=== PATIENT | female | born 1955 | race Caucasian/White ===

== ENCOUNTER 2020-07-04 14:01 | Emergency (ER) | payer MEDICARE, OTHER, SELFPAY ==
--- NOTE | ~2020-07-04 | XR_ITS ---
EXAMINATION: XR ABDOMEN KUB CLINICAL INDICATION: Gastrostomy feeding tube placement. COMPARISON: Esophagram dated 02/03/2016. TECHNIQUE: AP view of the abdomen. FINDINGS: The bowel gas pattern is normal with no evidence of ileus or obstruction. Administered contrast through the gastric tube positioned in the stomach. No unusual soft tissue calcifications are noted. The bones are unremarkable. XR/XR abdomen 1V IMPRESSION: Normal bowel gas pattern. Administered contrast through the gastric tube positioned in the stomach.
[2020-07-04 14:05] VITALS: BP 119/55; PULSE 87; RESP 18; TEMP 36.8; O2SAT 98; BMI 27.6
[2020-07-04 16:08] LABS: MANUAL DIFF FLAG NO
[2020-07-04 16:16] LABS: Basophils Percent Auto 0.7 % (0-2); Eosinophils Percent Auto 0.7 % (0-4); Hematocrit 31.3 % (37-47); Hemoglobin 10.8 g/dl (12.0-16.0); Imm Gran Abs Auto 0.01 X10*3/uL (0.00-0.03); Imm Gran Pct Auto 0.2 % (0.0-0.4); Lymphocytes Absolute Auto 1.3 X10*3/uL (1.2-4.9); Lymphocytes Percent Auto 30.3 % (20-40); Mean Corpuscular HGB Conc 34.5 g/dl (31.0-35.0); Mean Corpuscular Hemoglobin 30.9 pg (27.0-33.0); Mean Corpuscular Volume 89.4 fL (80-98); Mean Platelet Volume 9.5 fL (9.4-12.3); Monocytes Absolute Auto 0.4 X10*3/uL (0.1-1.2); Monocytes Percent Auto 9.4 % (2-11); Neutrophils Absolute Auto 2.6 X10*3/uL (2.0-8.3); Neutrophils Percent Auto 58.7 % (45-73); Platelet Count 181 X10*3/uL (160-400); Red Cell Distribution Width 12.2 % (11.0-16.0); White Blood Count 4.4 X10*3/uL (4.8-10.8)
[2020-07-04 16:30] LABS: Anion Gap 13 (12-20); Blood Urea Nitrogen 14 mg/dL (9-16); Calcium 8.9 mg/dL (8.4-10.2); Carbon Dioxide 30 mmol/L (22-29); Chloride 99 mmol/L (96-108); Creatinine Clr Calc Pharmacy 71.1; Estimated Glomerular Filt Rate > 60; Glucose Random 70 mg/dL (60-115); Potassium 4.3 mmol/L (3.3-5.1); Sodium 138 mmol/L (135-145)
--- NOTE | 2020-07-04 17:43 | ED_ITS ---
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 She denies any abdominal pain. She does report that she has had about 10 lb weight loss over the past month but she contributes this to the fact that she has decreased her pureed leading to wait last. There is no abdominal pain, nausea vomiting. No diarrhea. No fever. No chest pain shortness of breath. Associated symptoms: denies other symptoms Related Data Allergies Allergy/AdvReac Type Severity Reaction Status Date / Time morphine [MORPHINE] Allergy Mild HALLUCINATI Unverified 01/25/20 15:47 ONS Review of Systems Review of Systems: Constitutional: No Weight loss, No Fever, No Chills, No Night Sweats, No Fatigue, No Malaise ENT/Mouth: No Hearing loss, No Ear Pain, No Nasal Congestion, No Sinus Pain, No Hoarseness, No sore throat, No Rhinorrhea, No Swallowing Difficulty Eyes: No Eye Pain, No Swelling, No Redness, No Foreign Body, No Discharge, No Vision Changes Cardiovascular: No Chest Pain, No SOB, No Dyspnea on Exertion, No Orthopnea, No Edema, No Palpitations Respiratory: No Cough, No Sputum, No Wheezing, No Dyspnea Gastrointestinal: No Nausea, No Vomiting, No Diarrhea, No Constipation, No abdominal Pain, No Hematochezia, No Melena Genitourinary: No Dysuria, No Urinary Frequency, No Hematuria, No Urinary Incontinence, No Urgency, No Flank Pain, No Urinary Flow Changes, No Hesitancy Musculoskeletal: No joint pain, No Myalgias, No Joint Swelling Skin: No Skin Lesions, No rash Neuro: No Weakness, No Numbness, No Paresthesias, No Loss of Consciousness, No Dizziness, No Headache Psych: No Social Issues Heme/Lymph: No Bruising, No Bleeding,No Lymphadenopathy Endocrine: No Polyuria, No Polydipsia, No Temperature Intolerance Yes all other systems are reviewed and are negative [facility] Past Medical History Medical History (Updated 07/04/20 @ 18:28 by Jose R Brizuela NP) Arthritis Colon cancer Paraganglioma Thyroid ca Social History Social History Alcohol intake: never Smoking Status: Never smoker Use of substances other than those prescribed or required for medical reasons: No Advance Directives: No Advance Directives Information Provided: Yes Physical Exam Vital Signs: Vital Signs: Last Vital Signs Temp 98.2 F 07/04/20 14:05 Pulse 87 07/04/20 14:05 Resp 18 07/04/20 14:05 BP 119/55 L 07/04/20 14:05 Pulse Ox 98 07/04/20 14:05 Body Mass Index 27.6 Reviewed Const: General: cooperative and healthy appearing; No acute distress or intoxicated appearing Nutritional Appearance: average body habitus Orientation/consciousness: patient oriented x3 HENMT: Head: Yes normal to inspection Ears: hearing grossly normal bilaterally Eyes: General: appearance normal, both eyes and all related structures Visual Caro: normal visual caro by confrontation Neck: Neck: Yes normal visual inspection, No positive Brudzinski's sign, No positive Kernig's sign and No tender Thyroid: Thyroid normal Chest: Chest palpation & inspection: normal inspection of the chest Resp: Effort & Inspection: normal respiratory effort Auscultation: clear to auscultation bilaterally Cardio: Jugular venous distension: no JVD Rhythm: regular rhythm Heart sounds: S1 normal heart sound present and S2 normal heart sound present GI: Inspection: Yes normal to inspection Percussion: Yes normal to percussion Auscultation: normal bowel sounds Abdomen image: 1. Gastrostomy tube in place with dressing needed. Abdomen soft, without erythema or induration. No discharge. The tube does appear to be significantly age has cracks and brown appearing. : General: Yes no CVA tenderness Back/Spine/Pelvis: Back: no CVA tenderness Skin: General skin exam: no rashes or lesions noted Neuro: General: patient oriented x3 Extrem: General: Yes normal to inspection Procedures Feeding Tube Replacement Type of Tube: gastrostomy Insertion Site Prior to Procedure: clean Tube Used for Reinsertion: other (EDUAR 20 Australian gastrostomy tube feeding to) Australian Tube Size (F): 20 Balloon size (mL): 5 Verification of Placement: auscultation, KUB and gastrografin injection Tube Secured by: tape/dressing Patient Tolerated Procedure: well and no complications Additional Comments: Tolerated procedure very well. Medical Decision Making Medical Records Medical records reviewed: Yes I reviewed the patient's medical records. Medical records narrative: 03/16/2019 visit as well as 12/28/2019 visit for tube replacement. Lab Data Result diagrams: 07/04/20 16:01 07/04/20 16:01 Labs: Lab Results 07/04/20 07/04/20 07/04/20 Range/Units 16:01 16:01 16:01 WBC 4.4 L (4.8-10.8) X10*3/uL RBC 3.50 L (4.20-5.50) X10*6/uL Hgb 10.8 L (12.0-16.0) g/dl Hct 31.3 L (37-47) % MCV 89.4 (80-98) fL MCH 30.9 (27.0-33.0) pg MCHC 34.5 (31.0-35.0) g/dl RDW 12.2 (11.0-16.0) % Plt Count 181 (160-400) X10*3/uL MPV 9.5 (9.4-12.3) fL Immature Gran % (Auto) 0.2 (0.0-0.4) % Neut % (Auto) 58.7 (45-73) % Lymph % (Auto) 30.3 (20-40) % Snyder % (Auto) 9.4 (2-11) % Eos % (Auto) 0.7 (0-4) % Baso % (Auto) 0.7 (0-2) % Lymph # (Auto) 1.3 (1.2-4.9) X10*3/uL Snyder # (Auto) 0.4 (0.1-1.2) X10*3/uL Eos # (Auto) 0.0 (0.0-0.4) X10*3/uL Baso # (Auto) 0.0 (0.0-0.2) X10*3/uL Abs Immat Gran (auto) 0.01 (0.00-0.03) X10*3/uL Absolute Neuts (auto) 2.6 (2.0-8.3) X10*3/uL Absolute Nucleated RBC 0.000 (0.0-0.012) X10*3/uL Nucleated RBC % (auto) 0.0 (0.0-0.2) /100WBC Hold Blue Top SEE NOTE Sodium 138 (135-145) mmol/L Potassium 4.3 (3.3-5.1) mmol/L Chloride 99 (96-108) mmol/L Carbon Dioxide 30 H (22-29) mmol/L Anion Gap 13 (12-20) BUN 14 (9-16) mg/dL Creatinine 0.79 (0.5-1.4) mg/dL Estim Creat Clear Calc 71.1 Estimated GFR > 60 Random Glucose 70 (60-115) mg/dL Calcium 8.9 (8.4-10.2) mg/dL Imaging Data Abdomen one view: Radiologist's impression: [address] [id number] ReportSigned Patient: Remedios Mendoza LMR#: [id number]: [id number]:[id number]/Sex: 64 / FADM Date: 07/04/20Loc: EDAttending Dr: Ordering Physician: Jose R Brizuela NP Date of Service: 07/04/20 Procedure(s): XR abdomen 1V Accession Number(s): [id number] cc: Jose R Brizuela BUTTONHOLE MAKER HAND~ EXAMINATION: XR ABDOMEN KUB CLINICAL INDICATION: Gastrostomy feeding tube placement. COMPARISON: Esophagram dated 02/03/2016. TECHNIQUE: AP view of the abdomen. FINDINGS: The bowel gas pattern is normal with no evidence of ileus or obstruction. Administered contrast through the gastric tube positioned in the stomach. No unusual soft tissue calcifications are noted. The bones are unremarkable. XR/XR abdomen 1V IMPRESSION: Normal bowel gas pattern. Administered contrast through the gastric tube positioned in the stomach. Dictated By:Donya Avery MDSigned By:<Electronically signed by Donya Avery MD in [place]>07/04/201821 DD/ [id number]/TT: Tractor Driver: Discharge Plan Discharge Clinical Impression: Gastric tube granulation tissue Patient Disposition: Home, Self-Care Instructions: How to Use and Care for Your PEG Tube (ED) Additional Instructions: Your G-tube was replaced Continue tube feeding as instructed Follow-up with your GI doctor as plan Return if any concerns with systems Thank you Referrals: Varun Guaman [Physician] - 1 week
== END 2020-07-04 18:43 | disposition home or self-care (01) ==
PROVIDERS: Emergency Provider Internal Medicine; PCP Internal Medicine
DX: L92.9 Granulomatous disorder of the skin and subcutaneous tissue, unspecified (principal); Z43.1 Encounter for attention to gastrostomy; Z85.038 Personal history of other malignant neoplasm of large intestine; Z85.850 Personal history of malignant neoplasm of thyroid
CPT/HCPCS: 36415; 43762; 74018; 80048; 85025; 99284

== ENCOUNTER 2021-03-26 16:29 | Emergency (ER) | payer MEDICARE, OTHER, SELFPAY ==
--- NOTE | ~2021-03-26 | XR_ITS ---
EXAMINATION: XR ABDOMEN KUB CLINICAL INDICATION: Status post G-tube COMPARISON: None TECHNIQUE: AP view of the abdomen was performed after the administration of Gastrografin through the patient's G-tube. FINDINGS: The G-tube is in the stomach. Contrast is present in the stomach as well as the proximal small bowel. XR/XR KUB IMPRESSION: The gastrostomy tube is in the stomach.
[2021-03-26 16:36] VITALS: BP 138/76; PULSE 91; RESP 18; TEMP 36.7; O2SAT 100; BMI 23.5
--- NOTE | 2021-03-26 17:31 | ED_ITS ---
HPI - General Adult General Chief complaint: General Medical Stated complaint: check feeding tube..abd pain Time Seen by Provider: 03/26/21 17:31 Source: patient Mode of arrival: ambulatory Limitations: no limitations History of Present Illness HPI narrative: [age] year old female came in for evaluation of gastrostomy tube malfunction. Patient with history of ENT tumor, patient been having gastrostomy tube since 2019, to be used for most of her feeding patient still can do some puree diet by the mouth, patient stated that her feeding tube is acting slow, with some discomfort when she use for feeding. No fever, no chills, no nausea, no vomiting. Related Data Allergies Allergy/AdvReac Type Severity Reaction Status Date / Time morphine [MORPHINE] Allergy Mild HALLUCINATI Unverified 01/25/20 15:47 ONS Review of Systems Review of Systems: All other systems are reviewed and are negative Constitutional: Reports as per HPI and Reports no additional constitutional complaints Eyes: Reports as per HPI and Reports no additional eye complaints Reports system reviewed and no additional complaints, except as documented Cardiovascular: Reports as per HPI and Reports no additional cardiovascular complaints Respiratory: Reports as per HPI and Reports no additional respiratory complaints Gastrointestinal: Reports as per HPI and Reports no additional gastrointestinal complaints Genitourinary: Reports no additional female genitourinary complaints Musculoskeletal: Reports no additional musculoskeletal complaints Skin/Breast: Reports system reviewed and no additional complaints, except as docu Psychiatric: Reports no additional psychiatric complaints Endocrine: Reports no additional endocrine complaints Hematologic/Lymphatic: Reports no additional hematologic/lymphatic complaints Allergic/Immunologic: Reports no additional allergic/immunologic complaints Reports system reviewed and no additional complaints, except as documented and Reports Abnormal speech present [facility] Past Medical History Medical History Arthritis Colon cancer Paraganglioma Thyroid ca Social History Social History Alcohol intake: never Advance Directives: No Advance Directives Information Provided: Yes Physical Exam Vital Signs: Vital Signs: Last Vital Signs Temp 97.9 F 03/26/21 17:35 Pulse 82 03/26/21 18:57 Resp 16 03/26/21 18:57 BP 134/71 03/26/21 18:57 Pulse Ox 97 03/26/21 18:57 Body Mass Index 23.5 Vital signs have been reviewed as appeared to be correct. Blood pressure normal. Heart rate normal. Respiration rate normal. Temperature normal. Oxygen saturation normal. Appearance: Alert. Oriented X3. No acute distress. Head: Normal external exam. Normocephalic. Atraumatic. No Varma signs noted. No raccoon eyes noted Eyes: PERRLA. EOMI. Conjunctiva and sclera normal. Eyelids normal. ENT: TM's Normal. Pharynx normal. Uvula midline. Moist mucous membranes. No trismus noted. No drooling noted. No muffled voice noted. Neck: Normal inspection. Neck supple. FROM. No adenopathy. Thyroid Normal. No meningeal signs. No neck mass noted. CVS: Normal heart rate and rhythm. Heart sound normal. No murmurs noted. Pulses normal throughout. Respiratory: No respiratory distress. Painless inspiration. Breath sounds normal. No wheezes/rales/rhonchi noted. Chest nontender. No accessory muscle usage noted or decreased air movement noted. Abdomen: Soft and nontender. Bowel sounds normal in all 4 quadrants. No distention noted. No organomegaly noted. No visible injury noted. Gastric tube is in place, no cellulitis around the tube. Back: No CVA tenderness. Full range of motion noted. Skin: Skin warm and dry. Normal skin color. Normal skin turgor. No rashes/lesions/lacerations noted. Extremities: No lower extremity edema. Extremities exhibit normal range of motion. Extremities nontender. Neuro: Oriented X 3. Cranial nerve exam: II-XII are grossly intact No motor deficit. No sensory deficit. Reflexes normal. Course Course Course Narrative: Assessment and plan. 65-year-old female status post G-tube to be replaced in the emergency department. Post insertion x-ray with Gastrografin appear to be in place. Repeat abdominal exam showed no tenderness or rebound or guarding. Procedures Feeding Tube Replacement Type of Tube: gastrostomy Insertion Site Prior to Procedure: clean Swedish Tube Size (F): 22 Balloon size (mL): 10 Verification of Placement: KUB Tube Secured by: tape/dressing Patient Tolerated Procedure: well Medical Decision Making Imaging Data Abdominal x-ray: Radiologist's impression: The gastrostomy tube is in the stomach. ? Discharge Plan Discharge Clinical Impression: Gastrostomy tube dysfunction Patient Disposition: Home, Self-Care Instructions: How to Use and Care for Your PEG Tube (ED) Referrals: Donald Herrera MD [Primary Care Provider] - 2 days
[2021-03-26 17:35] VITALS: BP 105/66; PULSE 87; RESP 18; TEMP 36.6; O2SAT 100
[2021-03-26 18:57] VITALS: BP 134/71; PULSE 82; RESP 16; O2SAT 97
[2021-03-26] MEDS: Diatrizoate Meglumine, Sodium 30 ML SOLUTION PO (19:14)
--- NOTE | 2021-03-26 20:26 | PC.NURSE ---
reviewed discharge instructions and care plan. pt reports understanding.
== END 2021-03-26 20:37 | disposition home or self-care (01) ==
PROVIDERS: Emergency Provider Emergency Medicine; PCP Internal Medicine
DX: K94.23 Gastrostomy malfunction (principal); Z85.038 Personal history of other malignant neoplasm of large intestine
CPT/HCPCS: 43762; 74018; 99283; 99284

== ENCOUNTER 2021-04-07 13:52 | Emergency (ER) | payer MEDICARE, OTHER, SELFPAY ==
[2021-04-07 14:28] VITALS: BP 114/66; PULSE 85; RESP 18; TEMP 36.7; O2SAT 98; BMI 23.6
== END 2021-04-07 19:53 | disposition left against medical advice (07) ==
PROVIDERS: Emergency Provider Emergency Medicine; PCP Internal Medicine
DX: Z43.1 Encounter for attention to gastrostomy (principal)
CPT/HCPCS: 99281; 99282